=== PATIENT | female | born 1985 | race African-American/Black ===

== ENCOUNTER 2018-11-12 08:25 | Observation (INO) ==
[2018-11-12] MEDS ORDERED: KETOROLAC 60 MG/2 ML VIAL IM STA (10:33)
[2018-11-12] MEDS ORDERED: KETOROLAC 60 MG/2 ML VIAL IM ONE (10:34)
[2018-11-12 11:27] LABS: Basophils % 0.5 % (0.0-0.8); Eosinophils # 0.2 10*3/uL (0.0-0.87); Eosinophils % 5.9 % (0.00-10.9); Hematocrit 31.7 VOL% (35.7-47.0); Hemoglobin 9.8 GM/DL (12.0-16.0); Immature Granulocytes % 0.5 %; Immature Granulocytes Absolute 0.02 #; Lymphocytes # 1.1 10*3/uL (1.4-4.0); Lymphocytes % 25.7 % (21.3-54.2); Mean Corpuscular HGB Conc 30.9 GM/DL (32-36); Mean Corpuscular Volume 81.1 FL (87-102); Mean Platelet Volume 11.3 FL (9.6-12.0); Monocytes % 10.3 % (1.7-12.7); Neutrophils % 57.1 % (38.7-73.9); Platelet Count 200 T/CUMM (130-400); Red Blood Count 3.91 MC/CUMM (3.8-5.5); White Blood Count 4.1 T/CUMM (4-12)
[2018-11-12] MEDS ORDERED: CLINDAMYCIN INJ 600 MG in PREMIX 1 EACH IV STA (11:28)
[2018-11-12 11:43] LABS: Mucus,Urine Moderate /LPF (Occasional); RBC,Urine 3 /HPF (0-4); Squamous Epithelial Cell,Urine Occasional /HPF (0-10); WBC,Urine 1 /HPF (0-6)
[2018-11-12 11:44] LABS: Apearance,Urine Clear (Clear); Glucose,Urine (UA) Negative (Negative); Ketones,Urine Negative (Negative); Nitrite,Urine Negative (Negative); Protein,Urine Negative; Urine Color Yellow (Yellow); Urine Specific Gravity 1.025 (1.001-1.035)
[2018-11-12 11:45] LABS: Bilirubin,Urine Trace mg/dL (Negative); Blood, Urine Negative (Negative)
[2018-11-12] MEDS ORDERED: CLINDAMYCIN INJ 50 ML IV ONE (11:50)
[2018-11-12 11:56] LABS: Barbiturates Screen,Urine Negative (Negative); Benzodiazepines Screen,Urine Negative (Negative); Cannabinoid Screen,Urine Positive (Negative); Opiate Screen,Urine Negative (Negative); Phencyclidine Screen,Urine Negative (Negative)
[2018-11-12 12:34] LABS: Sedimentation Rate-Westergren 70 MM/HR (0-20)
[2018-11-12 12:52] LABS: Alanine Aminotransferase 14 U/L (13-56); Albumin 3.5 G/DL (3.4-5.0); Alkaline Phosphatase 70 U/L (45-117); Aspartate Amino Transferase 11 U/L (0-37); Bilirubin,Total < 0.39 MG/DL (0.2-1.0); Blood Urea Nitrogen 10 MG/DL (7-18); Glucose 87 MG/DL (74-106); Osmolality,Calculated 276.4 MOS/KG (273-304)
[2018-11-12] MEDS ORDERED: NICOTINE 21 MG/24 HR PATCH TRANSDERM PRN (16:21)
[2018-11-12] MEDS ORDERED: ACETAMINOPHEN 325 MG TABLET PO PRN (16:21)
[2018-11-12] MEDS: SODIUM CHLORIDE 0.9% 1,000 ML IV SCH (20:35)
[2018-11-12] MEDS: DOCUSATE SODIUM 100 MG CAPSULE PO SCH (20:35)
[2018-11-12] MEDS: MUPIROCIN 2% OINT 22 GM TUBE TOP SCH (20:35)
[2018-11-12] MEDS: HEPARIN 5,000 UNIT/1 ML VIAL SUBCUT SCH (20:35)
[2018-11-12] MEDS: CLINDAMYCIN INJ 600 MG in PREMIX 1 EACH IV SCH ×2 (22:25→22:32)
[2018-11-13] MEDS: CLINDAMYCIN INJ 600 MG in PREMIX 1 EACH IV SCH ×2 (04:38→09:47)
[2018-11-13 04:49] LABS: Basophils % 0.7 % (0.0-0.8); Eosinophils # 0.3 10*3/uL (0.0-0.87); Eosinophils % 8.5 % (0.00-10.9); Hematocrit 29.3 VOL% (35.7-47.0); Immature Granulocytes % 0.7 %; Immature Granulocytes Absolute 0.02 #; Lymphocytes # 1.4 10*3/uL (1.4-4.0); Lymphocytes % 46.4 % (21.3-54.2); Mean Corpuscular HGB Conc 30.7 GM/DL (32-36); Mean Corpuscular Volume 82.8 FL (87-102); Mean Platelet Volume 11.3 FL (9.6-12.0); Monocytes % 14.2 % (1.7-12.7); Neutrophils % 29.5 % (38.7-73.9); Platelet Count 164 T/CUMM (130-400); Red Blood Count 3.54 MC/CUMM (3.8-5.5); Red Cell Distribution Width 15.8 % (9.3-17.3)
[2018-11-13 05:19] LABS: Risk Ratio 2.69
[2018-11-13 05:40] LABS: Eosinophils 6 % (0-10); Lymphocytes 44 % (20-55); Segmented Neutrophils 36 % (50-85); Total Cells Counted 100
[2018-11-13 05:41] LABS: Hypochromasia 1+; Ovalocytes Slight; Platelet Estimate Adequate
[2018-11-13] MEDS: HEPARIN 5,000 UNIT/1 ML VIAL SUBCUT SCH (05:46)
[2018-11-13 05:47] LABS: Bilirubin,Total 0.5 MG/DL (0.2-1.0); Calcium 8.6 MG/DL (8.5-10.1); Osmolality,Calculated 280.1 MOS/KG (273-304)
[2018-11-13 07:40] VITALS: BP 101/59
[2018-11-13] MEDS: SODIUM CHLORIDE 0.9% 1,000 ML IV SCH (08:24)
[2018-11-13] MEDS: DOCUSATE SODIUM 100 MG CAPSULE PO SCH (08:25)
[2018-11-13] MEDS: MUPIROCIN 2% OINT 22 GM TUBE TOP SCH (08:36)
[2018-11-13] MEDS ORDERED: PANTOPRAZOLE 40 MG TABLET PO SCH (09:00)
== END 2018-11-13 11:31 | disposition home or self-care (01) ==
LOC: N.ED 08:25 → N.EDINP 08:25 → N.5E 19:07
PROVIDERS: ADMIT Internal Medicine; ATTEND Internal Medicine